=== PATIENT | female | born 1990 | race Caucasian/White ===

== ENCOUNTER 2016-10-26 15:09 | Emergency (ER) | payer SELFPAY ==
[~2016-10-26] VITALS: Ht 165.1 cm; Wt 85.5 kg
[2016-10-26 15:14] VITALS: Ht 165.1 cm; Wt 85.5 kg
[2016-10-26] MEDS ORDERED: ONDANSETRON 4 MG INJ IV STA (15:38)
[2016-10-26] MEDS ORDERED: SOD CHLORIDE 0.9% 1,000 ML IV STA (15:38)
[2016-10-26] MEDS ORDERED: FAMOTIDINE 20 MG INJ IV STA (15:38)
[2016-10-26 16:25] LABS: ADD SCAN DIFF NO
[2016-10-26 16:32] LABS: BASOPHILS % 0.3 % (0.0-2.0); EOSINOPHILS % 0.2 % (0.0-7.0); HEMATOCRIT 42.5 % (37.0-47.0); HEMOGLOBIN 14.1 g/dl (12.0-16.0); LYMPHOCYTES # 1.5 10^3/ul (0.8-2.9); LYMPHOCYTES % 11.7 % (15.0-51.0); MEAN CORPUSCULAR HEMOGLOBIN 32.2 pg (29.0-33.0); MEAN CORPUSCULAR HGB CONC 33.2 g/dl (32.0-37.0); MONOCYTE # 0.8 10^3/ul (0.3-0.9); MONOCYTES % 5.8 % (0.0-11.0); NEUTROPHIL # 10.6 10^3/ul (1.6-7.5); NEUTROPHILS % 81.6 % (39.0-77.0); PLATELET COUNT 275 10^3/UL (140-415); RED BLOOD COUNT 4.38 10^6/ul (4.20-5.40)
--- NOTE | 2016-10-26 16:32 | RADRPT ---
PROCEDURE: US Abdomen Limited . CLINICAL INDICATION: Abdominal pain TECHNIQUE: Multiple real-time images were acquired of the patient's right upper quadrant abdomen u tilizing a high resolution transducer. COMPARISON: None FINDINGS: The liver measures 13.7 cm and demonstrates a normal echogenicity. The gallbladder is filled with a moderate amount of bile. No shadowing echogenic stones or masses are seen in the gallbladder. The gallbladder wall is mildly thickened at 3.2 mm. No pericholecystic fluid is noted. The common bile d uct measures 2.2 mm in diameter. The visualized portions of the proximal pancreas are unremarkable. The tail of the pancreas is not well visualized. Antegrade flow is seen in the portal vein. Right kidney measures 10.3 cm. The kidney demonstrates a normal echogenicity. No hydronephrosis, ma sses or stones are noted. IMPRESSION: Nonspecific, minimal gallbladder wall thickening. Finding is of uncertain etiology and significance . Tail of the pancreas not well visualized. If characterization of this structure is needed repeat exa m or CT/MRI is recommended. RPTAT: AA .Jose Navarro MD, MD Date Time Electronically viewed and signed by .Jose Navarro MD, MD on 10/26/2016 16:32 .P/
[2016-10-26 16:45] LABS: ALBUMIN/GLOBULIN RATIO 1.66; BILIRUBIN,INDIRECT 0.5 mg/dl (0-1.1); BILIRUBIN,TOTAL 0.5 mg/dl (0.2-1.3); CALCIUM 9.9 mg/dl (8.4-10.2); CREATININE 0.64 mg/dl (0.44-1.00); POTASSIUM 3.6 mmol/L (3.5-5.1)
--- NOTE | 2016-10-26 16:46 | ERD ---
ER Documentation Chief Complaint Date/Time DATE: 10/26/16 TIME: 16:44 Chief Complaint VOMITTING & AP SINCE NOON HPI This is a 26-year-old female that presents to the ER with epigastric pain nausea and vomiting for the last 2 days. Vomiting is nonbilious nonbloody. Patient has a past medical history of acid reflux and may possibly have an ulcer. Patient denies any fevers or chills. She denies any diarrhea. Epigastric pain is intermittent and worse whenever she has to vomit it is described as a burning sensation. It is nonradiating. Patient is taking omeprazole and an [id number] acid reduction liquid. Patient denies any urinary frequency or dysuria. She denies any chest pain or shortness of breath. History was taken with an data entry clerk, the family called a family member on the phone. ROS 12 point review of systems was done, all negative except per HPI. Medications Home Meds Active Scripts Ondansetron Hcl* (Zofran*) 4 Mg Tab, 4 MG PO Q4H Y for NAUSEA AND OR VOMITING, # 30 TAB Prov:ALESSANDRO LECHUGA 10/26/16 Sucralfate* (Carafate*) 1 Gm Tab, 1 GM PO QID for 7 Days, TAB Prov:ANKUSHALESSANDRO WHITTEN C 10/26/16 Famotidine* (Pepcid*) 20 Mg Tablet, 20 MG PO BID for 14 Days, TAB Prov:ANKUSHALESSANDRO C 10/26/16 Allergies Allergies: Coded Allergies: No Known Allergy (Unverified , 10/26/16) PMhx/Soc Medical and Surgical Hx: pt denies Surgical Hx History of Surgery: No Anesthesia Reaction: No Hx Neurological Disorder: No Hx Respiratory Disorders: No Hx Cardiac Disorders: No Hx Psychiatric Problems: No Hx Miscellaneous Medical Probl: Yes (GASTRITIS ) Hx Alcohol Use: No Hx Substance Use: No Hx Tobacco Use: No Smoking Status: Never smoker Physical Exam Vitals Vital Signs Date Time Temp Pulse Resp B/P Pulse Ox O2 Delivery O2 Flow Rate FiO2 10/26/16 15:14 95.9 60 22 119/82 98 Physical Exam GENERAL: The patient is well developed and appropriate for usual state of health , in no apparent distress. HEENT: Atraumatic. CHEST: Clear to auscultation bilaterally. There are no rales, wheezes or rhonchi. HEART: Regular rate and rhythm. No murmurs, clicks, rubs or gallops. ABDOMEN: Soft, nontender and nondistended. Good bowel sounds. No rebound or guarding. No gross peritonitis. No gross organomegaly or masses. No Wylie sign or McBurney point tenderness. BACK: No midline or flank tenderness. NEURO: Alert and oriented. SKIN: The skin is warm and dry. Result Diagram: 10/26/16 1551 10/26/16 1551 Results 24 hrs Laboratory Tests Test 10/26/16 15:51 10/26/16 16:45 White Blood Count 13.010^3/ul Red Blood Count 4.3810^6/ul Hemoglobin 14.1g/dl Hematocrit 42.5% Mean Corpuscular Volume 97.0fl Mean Corpuscular Hemoglobin 32.2pg Mean Corpuscular Hemoglobin Concent 33.2g/dl Red Cell Distribution Width 13.0% Platelet Count 99212^3/UL Mean Platelet Volume 11.0fl Neutrophils % 81.6% Lymphocytes % 11.7% Monocytes % 5.8% Eosinophils % 0.2% Basophils % 0.3% Nucleated Red Blood Cells % 0.0/100WBC Neutrophils # 10.610^3/ul Lymphocytes # 1.510^3/ul Monocytes # 0.810^3/ul Eosinophils # 0.010^3/ul Basophils # 0.010^3/ul Nucleated Red Blood Cells # 0.010^3/ul Sodium Level 141mmol/L Potassium Level 3.6mmol/L Chloride Level 98mmol/L Carbon Dioxide Level 25mmol/L Anion Gap 22 Blood Urea Nitrogen 11mg/dl Creatinine 0.64mg/dl Glucose Level 112mg/dl Calcium Level 9.9mg/dl Total Bilirubin 0.5mg/dl Direct Bilirubin 0.00mg/dl Indirect Bilirubin 0.5mg/dl Aspartate Amino Transf (AST/SGOT) 19IU/L Alanine Aminotransferase (ALT/SGPT) 30IU/L Alkaline Phosphatase 48IU/L Total Protein 8.0g/dl Albumin 5.0g/dl Globulin 3.00g/dl Albumin/Globulin Ratio 1.66 Lipase 51U/L Urine Color YELLOW Urine Clarity SLIGHTLY CLOUDY Urine pH 7.0 Urine Specific Thomas 1.013 Urine Ketones TRACEmg/dL Urine Nitrite NEGATIVEmg/dL Urine Bilirubin NEGATIVEmg/dL Urine Urobilinogen NEGATIVEmg/dL Urine Leukocyte Esterase NEGATIVELeu/ul Urine Microscopic RBC 1/HPF Urine Microscopic WBC 1/HPF Urine Hemoglobin NEGATIVEmg/dL Urine Glucose NEGATIVEmg/dL Urine Total Protein NEGATIVEmg/dl Current Medications Medications (Trade) Dose Ordered Sig/Sinan Route PRN Reason Start Time Stop Time Status Last Admin Dose Admin Sodium Chloride (NS) 1,000 ml @ 1,000 mls/hr Q1H STAT IV 10/26/16 15:38 10/26/16 16:37 DC 10/26/16 15:46 Ondansetron HCl (Zofran Inj) 4 mg ONCE STAT IV 10/26/16 15:38 10/26/16 15:40 DC 10/26/16 15:46 Famotidine (Pepcid Iv) 20 mg ONCE STAT IV 10/26/16 15:38 10/26/16 15:40 DC 10/26/16 15:46 Procedures/MDM Differential Diagnosis: GERD, gastritis, peptic ulcer disease, pancreatitis, cholecystitis, choledocholithiasis, biliary colic, cholangitis, [id number] , ACS/MN, Pnuemonia. This is likely GERD, patient's symptoms were completely resolved in the ER she stated she felt significantly better. Suspicion for gallbladder disease or pancreatitis is low. There is no evidence of severe anemia of any electrolyte imbalance. Patient is stable for outpatient follow- up should be sent home with famotidine, Carafate, Zofran. Patient is to follow- up with her primary care doctor within 1-2 days or return to ER sooner if symptoms worsen. My medical decision making was shared with the patient she understands and agrees with plan. Departure Diagnosis: Primary Impression: Epigastric pain Condition: Stable ALESSANDRO LECHUGA Oct 26, 2016 16:46
[2016-10-26] MEDS ORDERED: SUCR1TAB56 PO (16:55)
[2016-10-26] MEDS ORDERED: FAMO-18 PO (16:55)
[2016-10-26 17:11] LABS: ADD UMIC NO; UR ASCORBIC ACID NEGATIVE (NEGATIVE); UR BILIRUBIN (Dip) NEGATIVE (NEGATIVE); UR BLOOD (Dip) NEGATIVE (NEGATIVE); UR CLARITY SLIGHTLY CLOUDY (CLEAR); UR COLOR YELLOW (YELLOW); UR GLUCOSE (Dip) NEGATIVE (NEGATIVE); UR KETONES (Dip) TRACE mg/dL (NEGATIVE); UR LEUKOCYTE ESTERASE (Dip) NEGATIVE Leu/ul (NEGATIVE); UR NITRITE (Dip) NEGATIVE (NEGATIVE); UR RBC 1 /HPF (0-5); UR SPECIFIC GRAVITY (Dip) 1.013 (1.003-1.030); UR TOTAL PROTEIN (Dip) NEGATIVE (NEGATIVE); UR UROBILINOGEN (Dip) NEGATIVE (NEGATIVE)
[2016-10-26] MEDS ORDERED: ONDA-43 PO (17:18)
[2016-10-26 17:27] VITALS: BP 122/67; PULSE 68; RESP 18; TEMP 98.1
== END 2016-10-26 17:28 | disposition home or self-care (01) ==
LOC: FTE 15:09
DX: R10.13 Epigastric pain (principal)
CPT/HCPCS: 36415; 76705; 80053; 81001; 83690; 85025; 96361; 96374; 96375; 99285; J2405; J7030; 81003